=== PATIENT | male | born 1995 | race Caucasian/White ===

== ENCOUNTER 2016-06-27 17:42 | Emergency (ER) | payer BC ==
[2016-06-27 17:55] VITALS: RESP 16; TEMP 98.4
--- NOTE | 2016-06-27 18:44 | EDPHY ---
H & P Stated Complaint: Left Flank pain, x4 days HPI/ROS: CHIEF COMPLAINT: Left chest wall pain. HISTORY OF PRESENT ILLNESS: The patient is a 20-year-old male presenting with left-sided upper abdominal pain. 4 days ago he developed pain in his left lower anterior ribs/upper abdomen that he describes as feeling like someone is pushing on him with 2 fingers. This pain has also been intermittently present. He sometimes also experiences it in the corresponding region of his back. It is worsened with movement. He also describes an episode of positional shortness of breath while in bed one night. This has not recurred. He denies chest pain , cough, urinary symptoms, hematuria, trauma, vomiting, diarrhea, recent sickness, fever, chills, or other complaints. No recent travel or immobilization. No family history of VTE. His family history includes kidney problems in his father. REVIEW OF SYSTEMS: A ten point review of systems was performed and is negative with the exception of the items mentioned in the HPI. Source: Patient Exam Limitations: No limitations - Personal History Current Tetanus/Diphtheria Vaccine: Yes Current Tetanus Diphtheria and Acellular Pertussis (TDAP): Yes - Medical/Surgical History Hx Asthma: No Hx Chronic Respiratory Disease: No Hx Diabetes: No Hx Cardiac Disease: No Hx Renal Disease: No Hx Cirrhosis: No Hx Alcoholism: No Hx HIV/AIDS: No Hx Splenectomy or Spleen Trauma: No Other PMH: wisdom teeth - Social History Smoking Status: Never smoked Alcohol Use: Occasionally Additional Social History: Senior at studying economics. - Physical Exam Exam: General Appearance: Alert. Vital signs reviewed. Blood pressure 152/85. Eyes: Pupils equal and round, no conjunctival injection, no discharge. Anicteric. ENT, Mouth: Mucous membranes are moist, no oropharyngeal erythema or edema. Neck: No lymphadenopathy, supple. Respiratory: Lungs are clear to auscultation; no wheezes, rales, or rhonchi. Cardiovascular: Regular rate and rhythm; no murmur, rub, or gallop. Gastrointestinal: LUQ tenderness just beneath the ribs. No guarding or rebound. Abdomen is soft, no masses or organomegaly, bowel sounds normal. Skin: Warm and dry, no rashes on exposed skin, normal color. Back: Nontender to palpation over the thoracolumbar spine. No CVAT. Extremities: No lower extremity edema, no calf tenderness or swelling. Neurological: Alert and oriented. Moving all four extremities easily and equally. Psychiatric: Normal affect. Constitutional: Initial Vital Signs Temperature (C) 36.9 C 06/27/16 17:51 Heart Rate 74 06/27/16 17:51 Respiratory Rate 16 06/27/16 17:51 Blood Pressure 152/85 H 06/27/16 17:51 O2 Sat (%) 99 06/27/16 17:51 O2 Delivery Mode Room Air Allergies/Adverse Reactions: No Known Allergies Allergy (Unverified 08/02/15 19:06) Home Medications: Medication Instructions Recorded NK [No Known Home Meds] 06/27/16 Medical Decision Making - Diagnostics Imaging: Chest x-ray was obtained. I viewed the images myself on the PACS system. The radiologist interpretation per Dr. Hare is: No significant radiographic abnormality. Specifically, a source for chest pain is not identified. I discussed the x-ray findings with the patient. ED Course/Re-evaluation: An IV was established and labs ordered. Chest x-ray ordered. 2044: Reassessed patient. Discussed results of chest x-ray. No pneumothorax or infiltrate, nothing to suggest pneumothorax or infection. His pain is not described as pleuritic, he has no risk factors for PE, and I think that PE is quite unlikely. His pain is actually located in his upper abdomen, rather then ribcage or chest. There are no skin changes that would suggest shingles. He did not want to take pain medication. On reexamination his abdomen is soft and very minimally tender in the left upper quadrant. He is not experiencing flank pain. He did not urinate while in the department. Kidney stone is a possibility but he is currently comfortable and I do not feel that further evaluation is needed on an emergency basis. He is feeling better and is comfortable going home. I am recommending anti-inflammatory medication for symptom relief and follow up if he is not improving. I answered his questions. He was given return precautions prior to discharge. - Data Points Laboratory Results: Laboratory Results 06/27/16 19:00 06/27/16 19:00 Departure - Departure Disposition: Home, Routine, Self-Care Clinical Impression: Chest wall pain Abdominal pain Qualifiers: Qualifier Code: (R10.12) Left upper quadrant pain Condition: Good Instructions: Chest Wall Pain (ED), Abdominal Pain (ED) Additional Instructions: Drink plenty of fluids. Take 400mg Ibuprofen every 6 hours as needed for pain. Follow up with [facility] if symptoms are not improving in the next 1-2 days. Return to the emergency department if you experience serious worsening of condition. Referrals: [facility] [Outside] - As per Instructions Report Scribed for: Yoselyn Silvestre Report Scribed by: Wu Soriano Date of Report: 06/27/16 Time of Report: 18:49 Physician Review and Approval Statement: 06/27/16 18:44 Portions of this note were transcribed by the medical anthropology director. I, Dr. Yoselyn Silvestre, personally performed the history, physical exam, and medical decision- making; and confirmed the accuracy of the information in the transcribed note.
[2016-06-27 19:16] LABS: % IMMATURE GRANULYOCYTES 0.1 % (0.0-1.1); ABSOLUTE IMMATURE GRANULOCYTES 0.01 10^3/uL (0.00-0.10); ADD DIFF? NO; ADD MORPH? NO; ADD SCAN? NO; ATYPICAL LYMPHOCYTE FLAG 20 (0-99); FRAGMENT RBC FLAG 0 (0-99); HEMATOCRIT 48.9 % (40.0-51.0); HEMOGLOBIN 17.2 g/dL (13.7-17.5); LEFT SHIFT FLG 0 (0-99); LIPEMIA HEMOLYSIS FLAG 90 (0-99); MEAN CELL HEMOGLOBIN 30.3 pg (27.9-34.1); MEAN CELL HEMOGLOBIN CONCENTR. 35.2 g/dL (32.4-36.7); MEAN CELL VOLUME 86.1 fL (81.5-99.8); MEAN PLATELET VOLUME 10.6 fL (8.7-11.7); PLATELET CLUMPS FLAG 0 (0-99); PLATELET COUNT 264 10^3/uL (150-400); RED BLOOD CELL COUNT 5.68 10^6/uL (4.40-6.38); RED CELL DISTRIBUTION WIDTH 12.3 % (11.5-15.2)
[2016-06-27 19:33] LABS: ANION GAP 13 mEq/L (8-16); CALCIUM 9.6 mg/dL (8.5-10.4); CARBON DIOXIDE 25 mEq/l (22-31); CHLORIDE 105 mEq/L (97-110); CREATININE 0.8 mg/dL (0.7-1.3); GLOMERULAR FILTRATION RATE > 60; GLUCOSE 89 mg/dL (70-100); POTASSIUM 4.2 mEq/L (3.5-5.2); SODIUM 143 mEq/L (134-144)
--- NOTE | 2016-06-27 20:13 | DX ---
PA and Lateral Chest History: Chest pain. Findings: The heart and mediastinum are normal. Pulmonary vascularity is normal. The lungs are clear. There is no pleural fluid. A pneumothorax is not identified. Impression: No significant radiographic abnormality. Specifically, a source for chest pain is not lillian ntified.
[2016-06-27 21:01] VITALS: BP 127/80; PULSE 86; O2SAT 95
== END 2016-06-27 20:59 | disposition home or self-care (01) ==
DX: R07.89 Other chest pain (principal); R10.12 Left upper quadrant pain